=== PATIENT | female | born 1965 | race Caucasian/White ===

== ENCOUNTER 2021-08-09 17:10 | Emergency (ER) | payer MEDICARE, SELFPAY ==
[2021-08-09 17:22] VITALS: BP 112/80; PULSE 82; RESP 18; TEMP 36.7; O2SAT 98
--- NOTE | 2021-08-09 17:54 | ED.GENADULT ---
HPI - General Adult General Chief complaint: Upper Respiratory Infection Stated complaint: cough/sob/body aches Source: patient Mode of arrival: ambulatory Limitations: no limitations History of Present Illness HPI narrative: Patient is a 56-year-old female who presents to the [facility] via POV for evaluation of upper respiratory symptoms that have been present since this morning. Additionally, she reports dry cough, mid back pain, fatigue, occipital headache, and shortness of breath. She states her shortness of breath has improved since this morning. She admits to being a current tobacco smoker. Denies taking meds for symptoms. Sleep improves symptoms and being awake worsens symptoms. History of pneumonia. She states she is fully vaccinated against Covid. Denies influenza vaccine. Denies known exposure to sick contacts. Related Data Home Medications Medication Instructions Recorded Confirmed buspirone 10 mg PO DIRECTED 08/09/21 08/09/21 citalopram 20 mg PO DAILY 08/09/21 08/09/21 citalopram 40 mg PO DAILY 08/09/21 08/09/21 famotidine 40 mg PO DAILY 08/09/21 08/09/21 furosemide 40 mg PO DAILY 08/09/21 08/09/21 gabapentin 100 mg PO DIRECTED 08/09/21 08/09/21 trazodone 150 mg PO DAILY 08/09/21 08/09/21 zolpidem 12.5 mg PO DAILY 08/09/21 08/09/21 Allergies Allergy/AdvReac Type Severity Reaction Status Date / Time hepatitis B virus vaccine Allergy Mild Cramping Verified 08/09/21 17:50 of the Muscles clarithromycin Allergy Unknown Other Verified 08/09/21 17:50 sumatriptan Allergy Unknown Other Verified 08/09/21 17:50 acetaminophen AdvReac Mild N/V Verified 08/09/21 17:50 OXYCODONE HCL AdvReac Mild N/V Uncoded 08/09/21 17:50 Review of Systems Review of Systems: Denies history of COPD, bronchitis, asthma. Pertinent negatives: fever, sweats, chills, change in appetite, fatigue, skin color changes, severe persistent headache, nasal congestion/discharge, dizziness, lymphadenopathy, sinus problems, ear pain/drainage, chest pain, heart murmurs, heart palpitations, wheezing, cyanosis, hemoptysis, hoarseness, orthopnea, pleuritic pain, nausea, vomiting, diarrhea, and myalgias. [facility] Past Medical History Medical History (Updated 08/09/21 @ 18:16 by Jitendra Hills, MEDICAL STAFF CREDENTIALING COORDINATOR, ) Anxiety Depression GERD (gastroesophageal reflux disease) Hypertension Insomnia Comments I have reviewed and agree with the patient's past medical, surgical, social, and family hx as documented by the RN. There is no relevant family history pertinent to the presenting complaint. Exam Narrative: GENERAL: Well-appearing, well-nourished, and in no acute distress. HEAD: Normocephalic, atraumatic. No sinus tenderness or facial swelling appreciated. EYES: PERRLA and EOMI. No evidence of erythema, swelling, or drainage. ENT: Bilateral external ears and ear canals normal. Bilateral TMs are normal.No TM perforation. Nares clear, no rhinorrhea or epistaxis. Bilateral turbinates without erythema/ swelling. Mucous membranes moist and pink. Uvula is midline without erythema and swelling. No evidence of petechial rash, cobblestoning, lesions, ulcers, erythema, swelling, exudates, peritonsillar abscess, tenting, or drooling. Breath odor and voice normal. NECK: Supple. No Lymphadenopathy or nuchal rigidity appreciated. CHEST: Bilateral lung gagnon are clear to auscultation. No respiratory distress. No evidence of pleuritic cp upon examination. Moderate wet cough appreciated on examination. HEART: Regular rate and rhythm. No murmur, gallop, or rub heard. EXTREMITIES: Normal range of motion. No edema. SKIN: Warm, dry, no rash. NEURO: No focal deficits. Alert and oriented x3. Special observation: Strong smell of tobacco smoke upon entry into exam room Course Vital Signs Vital signs: Vital Signs Temperature 98.0 F 08/09/21 17: Pulse Rate 82 08/09/21 17:22 Respiratory Rate 18 08/09/21 17: Blood Pressure 112/80
== END 2021-08-09 18:41 | disposition home or self-care (01) ==
PROVIDERS: Emergency Provider Nurse Practitioner Family
DX: J06.9 Acute upper respiratory infection, unspecified (principal); Z20.822 Contact with and (suspected) exposure to COVID-19; K21.9 Gastro-esophageal reflux disease without esophagitis; I10 Essential (primary) hypertension; F41.9 Anxiety disorder, unspecified; F32.A Depression, unspecified; G47.00 Insomnia, unspecified
CPT/HCPCS: 87426; 87804; 99213; C9803; G0463

== ENCOUNTER 2021-09-15 15:05 | Emergency (ER) | payer MEDICARE, SELFPAY ==
--- NOTE | 2021-09-15 15:16 | ED.URI ---
HPI - URI/Sore Throat General Chief Complaint: Headache Stated Complaint: Headache Source: patient, family, RN notes reviewed and old records reviewed Mode of arrival: ambulatory Limitations: no limitations History of Present Illness HPI Narrative: 56-year-old presents to the [facility] with complaints of a headache for the last 4 days. Has tried her gabapentin she has prescribed. Has a history of migraines, states it feels very similar. Was able to drive her [address] home from work without issue. States she is late and sound sensitive. No neurologic deficits MD elicited complaint: other Related Data Home Medications Medication Instructions Recorded Confirmed buspirone 20 mg PO DIRECTED 08/09/21 09/15/21 citalopram 40 mg PO DAILY 08/09/21 09/15/21 furosemide 40 mg PO DAILY 08/09/21 09/15/21 gabapentin 100 mg PO DIRECTED 08/09/21 09/15/21 trazodone 300 mg PO DAILY 08/09/21 09/15/21 zolpidem 12.5 mg PO DAILY 08/09/21 09/15/21 Allergies Allergy/AdvReac Type Severity Reaction Status Date / Time hepatitis B virus vaccine Allergy Mild Cramping Verified 09/15/21 15:22 of the Muscles clarithromycin Allergy Unknown Other Verified 09/15/21 15:22 sumatriptan Allergy Unknown Other Verified 09/15/21 15:22 acetaminophen AdvReac Mild N/V Verified 09/15/21 15:22 OXYCODONE HCL AdvReac Mild N/V Uncoded 09/15/21 15:22 Review of Systems Review of Systems: All systems reviewed & are unremarkable except as noted in HPI and below Constitutional: Constitutional: Reports no additional constitutional complaints, Denies chills, Denies fever(s) and Denies headache(s) Eyes: Eyes: Reports as per HPI and Reports photophobia ENT: Reports system reviewed and no additional complaints, except as documented, Denies vertigo, Denies dizziness, Denies headache(s), Denies nasal congestion and Denies sore throat Cardiovascular: Cardiovascular: Reports no additional cardiovascular complaints, Denies chest pain, Denies syncope, Denies rapid heart rate and Denies dyspnea Respiratory: Respiratory: Reports no additional respiratory complaints, Denies cough, Denies dyspnea and Denies wheezing Gastrointestinal: Gastrointestinal: Reports no additional gastrointestinal complaints, Denies abdominal pain, Denies diarrhea, Denies nausea and Denies vomiting Musculoskeletal: Musculoskeletal: Reports no additional musculoskeletal complaints and Denies numbness Integumentary/Breasts: Skin/Breast: Reports system reviewed and no additional complaints, except as docu Neurologic: Reports as per HPI, Denies vertigo, Denies dizziness, Denies syncope, Reports headache(s), Denies focal weakness and Denies numbness Psychiatric: Psychiatric: Reports no additional psychiatric complaints Allergic/Immunologic: Allergic/Immunologic: Reports no additional allergic/immunologic complaints and Denies wheezing PMFSH Past Medical History Medical History (Updated 09/15/21 @ 16:14 by Sherice Mcdaniel) Anxiety Depression GERD (gastroesophageal reflux disease) Hypertension Insomnia Comments At the time of my signature, I reviewed and agree with the nursing past medical, surgical, social, and family history. There is no relevant family history pertinent to the patient complaint. Exam Const: General: cooperative, healthy appearing, no acute distress, well developed and alert Nutritional Appearance: well nourished Orientation/consciousness: patient oriented x3 Limitations: no limitations HENMT: Head: normal to inspection Ears: external ears normal, TM's normal bilaterally and EAC's normal Eyes: Alignment and Position: alignment normal Eyelids: eyelids normal Conjunctivae: conjunctivae normal Cornea: corneas normal Pupils: Equal, round and reactive pupils present EOM: EOMs intact bilaterally Direct Ophthalmoscopy: normal light reflex and photophobia Neck: Neck: normal visual inspection, no lymphadenopathy and no meningeal signs Chest: Chest palpation & i
[2021-09-15 15:29] VITALS: BP 145/66; PULSE 80; RESP 16; TEMP 36.7; O2SAT 97
[2021-09-15] MEDS: KETOROLAC (*BKC) 60 MG/2 ML VIAL IM (15:36)
[2021-09-15] MEDS: ONDANSETRON HCL ODT 4 MG TABLET SUBLINGUAL (15:36)
--- NOTE | 2021-09-15 16:10 | PC.NURSE ---
Re-evaluation: patient reports nausea has subsided, headache pain has improved to 3/10. 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
== END 2021-09-15 16:18 | disposition home or self-care (01) ==
PROVIDERS: Emergency Provider Nurse Practitioner; PCP Internal Medicine
DX: G43.909 Migraine, unspecified, not intractable, without status migrainosus (principal); K21.9 Gastro-esophageal reflux disease without esophagitis; I10 Essential (primary) hypertension; F41.9 Anxiety disorder, unspecified; F32.9 Major depressive disorder, single episode, unspecified
CPT/HCPCS: 96372; 99213; A9270; G0463; J1885

== ENCOUNTER 2023-01-18 19:08 | Emergency (ER) | payer MEDICARE, SELFPAY ==
--- NOTE | 2023-01-18 19:15 | ECG_ITS ---
Measurements Intervals [place] Rate: 68 P: 67 [place]: 158 QRS: 67 QRSD: 89 T: 55 QT: 339 QTc: 361 Interpretive Statements SINUS RHYTHM NONSPECIFIC T-WAVE ABNORMALITY NO PREVIOUS ECG AVAILABLE FOR COMPARISON Electronically Signed On 01-19-2023 13:36:29 CDT by Leah Jensen M.D.
[2023-01-18 19:17] VITALS: BP 130/80; PULSE 72; RESP 20; TEMP 35.8; O2SAT 98
[2023-01-18] MEDS: ASPIRIN 81 MG CHEWABLE TABLET 324 MG PO (19:21)
--- NOTE | 2023-01-18 19:30 | ED.GENADULT ---
HPI - General Adult General Chief complaint: Unspecified Stated complaint: Multiple Complaints Source: patient Mode of arrival: ambulatory Limitations: no limitations History of Present Illness HPI narrative: Patient is a 49-year-old female who presents with right-sided neck pain, right arm pain right back pain that started yesterday morning when she woke up. She states she could not turn her neck was shooting pain. Since then patient reports right side body numbness that started intermittently but is now constant. Reports frontal headache today but denies any vision changes or difficulty in speech. Denies any weakness in either extremity. Also having midsternal chest pressure 7/10. Patient was at chiropractor, but did not get adjusted due to symptoms and chiropractor told her to seek medical care. While at the chiropractor she started vomiting. Patient has taken ibuprofen today with no relief. Patient reports only history is psych related, no cardiac. Related Data Home Medications Medication Instructions Recorded Confirmed buspirone 10 mg tablet 20 mg PO DIRECTED 08/09/21 09/15/21 citalopram 40 mg tablet 40 mg PO DAILY 08/09/21 09/15/21 trazodone 150 mg tablet 300 mg PO DAILY 08/09/21 09/15/21 Allergies Allergy/AdvReac Type Severity Reaction Status Date / Time hepatitis B virus vaccine Allergy Mild Cramping Verified 01/18/23 19:51 of the Muscles clarithromycin Allergy Unknown Other Verified 01/18/23 19:51 sumatriptan Allergy Unknown Other Verified 01/18/23 19:51 acetaminophen AdvReac Mild N/V Verified 01/18/23 19:51 OXYCODONE HCL AdvReac Mild N/V Uncoded 01/18/23 19:51 Review of Systems Review of Systems: All systems reviewed & are unremarkable except as noted in HPI and below Constitutional: Constitutional: Denies body ache(s), Denies chills, Denies fatigue, Denies fever(s), Reports headache(s), Denies malaise and Denies weakness Eyes: Eyes: Denies blurry vision, Denies irritation and Denies loss of vision ENT: Denies otalgia, Denies headache(s), Denies nasal discharge, Denies sinus pain and Denies sore throat Cardiovascular: Cardiovascular: Reports chest pain, Denies irregular heart rhythm and Denies dyspnea Respiratory: Respiratory: Denies dyspnea Gastrointestinal: Gastrointestinal: Denies abdominal pain, Denies melena, Denies hematochezia, Denies diarrhea, Reports nausea and Reports vomiting Musculoskeletal: Musculoskeletal: Reports back pain, Denies myalgias, Denies arthralgias, Reports neck pain and Reports numbness Integumentary/Breasts: Skin/Breast: Denies pruritus and Denies rash Neurologic: Denies headache(s), Denies loss of vision and Denies weakness Psychiatric: Psychiatric: Reports no additional psychiatric complaints Endocrine: Endocrine: Denies fatigue PMFSH Past Medical History Medical History (Updated 01/18/23 @ 19:52 by Sabine Molina, VIRTUAL RECRUITER) Anxiety Depression GERD (gastroesophageal reflux disease) Hypertension Insomnia Comments At time of signature, agree with nursing past medical, surgical, social and family history. There is no relevant family history pertinent to the presenting complaint. Exam Const: General: cooperative, healthy appearing, uncomfortable and well nourished Nutritional Appearance: well nourished Orientation/consciousness: patient oriented x3 Limitations: no limitations HENMT: Head: normal to inspection, normocephalic and atraumatic Ears: hearing grossly normal bilaterally and external ears normal Face/Nose/Sinus: Normal external nose present, normal facial exam and face symmetric Face and sinus: normal facial exam and face symmetric Mouth: Yes lip normal Eyes: General: appearance normal, both eyes and all related structures Alignment and Position: alignment normal and position normal Periorbital: periorbital findings normal Eyelids: eyelids normal Pupils: Equal, round and reactive pupils present EOM: EOMs intact bilaterally Neck: Ne
== END 2023-01-18 19:40 | disposition short-term general hospital (02) ==
PROVIDERS: Emergency Provider Nurse Practitioner Family; PCP Internal Medicine
DX: R20.0 Anesthesia of skin (principal); R07.9 Chest pain, unspecified; M54.2 Cervicalgia; R51.9 Headache, unspecified; R11.10 Vomiting, unspecified; F32.A Depression, unspecified; F41.9 Anxiety disorder, unspecified; I10 Essential (primary) hypertension
CPT/HCPCS: 93005; 99215; A9270; G0463

== ENCOUNTER 2023-01-18 20:03 | Emergency (ER) | payer MEDICARE, SELFPAY ==
--- NOTE | ~2023-01-18 | CT_ITS ---
EXAMINATION: CTA chest abdomen pelvis DATE: 01/18/2023 22:51 INDICATION: Right-sided back, shoulder and arm pain. Headache. TECHNIQUE: Computed tomographic angiography (CTA) of the chest, abdomen, and pelvis was performed 100 mL Omnipaque-350 intravenous contrast. Volume-rendered 3D-reconstructions of the aorta and large art eries were constructed by the technologist on a separate workstation. Automated exposure control and iterative reconstruction technique were employed. The dose-length product was 1244.92 mGy-cm. COMPARISON: None FINDINGS: Chest: Mild dependent atelectasis in the bilateral lower lobes and mild discoid atelectasis at the lingula. No pneumonia, pulmonary edema, pleural effusion or pneumothorax. Heart size is normal. No pericardial effusion. Thoracic aorta is normal in caliber with no dissection. Mild thoracic dextrocurvature. Chr onic T12 compression fracture with 20% anterior vertebral body height loss. Abdomen and pelvis: Cholecystectomy clips at the gallbladder fossa. Liver, spleen, pancreas, bilateral adrenal glands and left kidney are normal. 6 mm cyst at the upper pole of the right kidney. There are some excreted con trast in the bladder and opacifying the majority the uterus likely related to the earlier contrast ut ilized for the CT of the carotid and cerebral arteries. The uterus is not identified and has likely b een surgically resected. Bowels including the appendix are normal. Small amount of atherosclerotic pl aque without hemodynamic significant stenosis along the normal caliber abdominal aorta and bilateral common iliac arteries. There are 2 right renal arteries supplying the upper and lower poles respectiv kd. No free intraperitoneal gas or fluid. No pathologically enlarged abdominal or pelvic lymphadenop athy. Mild lumbar spondylosis. IMPRESSION: 1. Normal caliber thoracic and abdominal aorta with no dissection. 2. No acute cardiopulmonary disease or acute intra-abdominal/pelvic process. Reviewed, dictated and finalized at location A.
--- NOTE | ~2023-01-18 | CT_ITS ---
EXAMINATION: CTA BRAIN/CAROTID DATE: 01/18/2023 22:46 INDICATION: Right-sided headache and neck pain TECHNIQUE: Computed tomographic angiography (CTA) of the head and neck was performed with 100 mL Omni paque-350 intravenous contrast. Multiplanar reconstructions and maximum intensity projection 3D-recon structions of the carotid arteries and of the intracranial arteries were created by the technologist on a separate workstation. Precontrast CT of the head was also obtained. Automated exposure control and iterative reconstruction technique were employed.The dose-length product was 1828.76 mGy-cm. COMPARISON: None. FINDINGS: Carotid arteries: There is minimal amount of plaque at the left and right carotid bulbs with 0% stenosis relative to no rmal distal artery lumen diameter (NASCET criteria). Right vertebral artery is dominant. Cervical spi ne and cervical soft tissues are unremarkable. Head: No acute intracranial hemorrhage, acute infarction or abnormal extra axial fluid collection. Ventricl es are normal and symmetric. No mass/mass effect. No abnormally enhancing brain lesions. Changes of r ight intraocular lens replacement. The orbits and paranasal sinuses are normal. Trace right mastoid e ffusion. Intracranial arteries: There is no hemodynamically significant stenosis in the vertebral, basilar and internal carotid arter ies. Vertebral artery is dominant. There are no aneurysms identified. Both A1 and P1 segments are pa tent. Cerebral arterial arborization appears symmetric. IMPRESSION: 1. No acute intracranial process or abnormally enhancing brain lesions. 2. 0% stenosis of the right and left carotid bulbs relative to normal distal artery lumen diameter (N ASCET criteria). 3. Normal cerebral angiogram with no hemodynamically significant stenosis, aneurysm or dissection. Reviewed, dictated and finalized at location A. IMPRESSION: 1. No acute intracranial process or abnormally enhancing brain lesions. 2. 0% stenosis of the right and left carotid bulbs relative to normal distal ar kailash lumen diameter (NASCET criteria). 3. Normal cerebral angiogram with no hemodynamically significant stenosis, aneu rysm or dissection.
[2023-01-18 20:01] VITALS: BP 120/70; PULSE 63; RESP 18; TEMP 36.4; O2SAT 94
[2023-01-18] MEDS: diphenhydrAMINE HCl INJ 50 MG/ML VIAL IV PUSH (22:16)
[2023-01-18] MEDS: SODIUM CHLORIDE 0.9% IV 1,000 ML 999 ML IV CONT (22:16)
[2023-01-18] MEDS: PROCHLORPERAZINE EDISYLATE 10 MG/2 ML VIAL IV PUSH (22:17)
[2023-01-18 22:19] LABS: Basophils Percent Auto 0.1 % (0.2-1.2); Hematocrit 37.2 % (37.0-47.0); Hemoglobin 12.3 g/dL (12.0-15.0); Immature Granulocyte Absolute 0.07 K/mm3 (0.00-0.031); Immature Granulocyte Percent A 0.6 % (0-0.5); Lymphocytes Absolute Auto 1.72 K/mm3 (0.9-3.2); Lymphocytes Percent Auto 14.6 % (18.3-44.2); Mean Corpuscular HGB Conc 33.1 g/dl (32-36); Mean Corpuscular Hemoglobin 30.8 pg (26-34); Mean Corpuscular Volume 93.2 fl (80-100); Mean Platelet Volume 9.2 fl (7.4-10.4); Monocytes Absolute Auto 0.3 K/mm3 (0.1-0.6); Monocytes Percent Auto 2.1 % (2.6-8.5); Neutrophils Absolute Auto 9.8 K/mm3 (1.3-6.7); Neutrophils Percent Auto 82.6 % (45.5-73.1); Platelet Count Result 246 k/mm3 (150-375); Red Blood Count 3.99 M/mm3 (4.2-5.4); Red Cell Distribution Width 15.7 % (11.5-14.5); White Blood Count 11.8 K/mm3 (4.5-10.0)
[2023-01-18 22:29] LABS: Alanine Aminotransferase 19 U/L (6-35); Alkaline Phosphatase 63 U/L (38-126); Anion Gap 4 mmol/L (8-16); Aspartate Amino Transferase 22 U/L (14-36); Bilirubin,Total 0.4 mg/dL (0.2-1.3); Blood Urea Nitrogen 8 mg/dL (7-17); Carbon Dioxide 30 mmol/L (22-30); Chloride 108 mmol/L (98-107); Estimated CRCL calculation 70 ml/min; Estimated Glomerular Filt Rate > 60; Glucose 112 mg/dL (65-110); Magnesium 2.2 mg/dL (1.6-2.3); Potassium 3.9 mmol/L (3.4-5.0); Sodium 142 mmol/L (137-145)
[2023-01-18 22:30] LABS: Lactic Acid Reflex 1.9 mmol/L (0.7-2.0)
[2023-01-18 22:30] LABS: Prothrombin Time 13.8 Seconds (11.1-14.7)
[2023-01-18 22:31] LABS: Partial Thromboplastin Time 31.9 SECONDS (22.3-36.8)
[2023-01-18 22:47] LABS: NT Pro B Type Natriuretic Pept 127 pg/mL (19.9-100); Troponin I < 0.012 ng/mL (0.000-0.034)
[2023-01-18 22:47] LABS: Appearance Urine Cloudy (Clear); Bacteria Urine Rare /hpf; Bilirubin Urine Negative (Negative); Blood Urine Negative (Negative); Color Urine Dark Yellow (Yellow); Glucose Urine UA Negative (Negative); Hyaline Casts Urine Present /lpf; Ketones Urine 1+ mg/dL (Negative); Leukocyte Esterase Ur Negative LEU/UL (Negative); Mucus Urine Present /lpf; Nitrate Urine Negative (Negative); Non Pathogenic Casts >20; Protein Urine 1+ mg/dL (Negative); Squamous Epithelial Cell Urine Many /hpf (Few); WBC Urine 21-50 /hpf; pH Urine 5.5 (5.0-9.0)
[2023-01-18 22:48] LABS: Specific Grav Ur 1.047 (1.001-1.035)
[2023-01-18 22:49] LABS: Add Urine Microscopic? YES
[2023-01-18 23:06] LABS: Procalcitonin < 0.0 ng/mL
--- NOTE | 2023-01-18 23:51 | ED.GENADULT ---
HPI - General Adult General Chief complaint: Headache Stated complaint: numbness Time Seen by Provider: 01/18/23 21:09 History of Present Illness HPI narrative: Patient is a 57-year-old female who presents emergency department with chief complaint of headache and pain between shoulder blades. The patient reports that she went to sleep on Sunday evening around midnight and woke up Sunday morning and noticed that she started having pain between her shoulder blades that radiated down her right arm patient states the pain then progressed to starting to develop a having a headache that started in her right frontal area the patient states that she had tried multiple different things to try to control her pain between her shoulder blades and ultimately the pain finally started to go away about the time that she went to go see a chiropractor who recommended that she go to the of the urgent care or the emergency department the patient then went to urgent care that ultimately said that they did not feel comfortable taking care of her at urgent care and sent her to the emergency department Related Data Home Medications Medication Instructions Recorded Confirmed buspirone 10 mg tablet 20 mg PO DIRECTED 08/09/21 01/18/23 citalopram 40 mg tablet 40 mg PO DAILY 08/09/21 01/18/23 trazodone 150 mg tablet 300 mg PO DAILY 08/09/21 01/18/23 Allergies Allergy/AdvReac Type Severity Reaction Status Date / Time hepatitis B virus vaccine Allergy Mild Cramping Verified 01/18/23 19:51 of the Muscles clarithromycin Allergy Unknown Other Verified 01/18/23 19:51 sumatriptan Allergy Unknown Other Verified 01/18/23 19:51 acetaminophen AdvReac Mild N/V Verified 01/18/23 19:51 OXYCODONE HCL AdvReac Mild N/V Uncoded 01/18/23 19:51 Review of Systems Review of Systems: A 10 system review of systems was completed on the patient and is negative except for what is stated in the HPI. Nursing and ancillary documentation was reviewed. PMFSH Past Medical History Medical History Anxiety Depression GERD (gastroesophageal reflux disease) Hypertension Insomnia Exam Narrative: GENERAL: Well-appearing, well-nourished, and in no acute distress. HEAD: Normocephalic, atraumatic. EYES: PERRLA and EOMI. ENT: Nares clear, no rhinorrhea or epistaxis. Mucous membranes moist. NECK: Supple. Back: There is tenderness to palpation of the paraspinous muscles in the thoracic spine area CHEST: Clear to auscultation. No respiratory distress. HEART: Regular rate and rhythm. No murmur heard. Normal peripheral pulses. ABDOMEN: Soft, nontender, nondistended, normal active bowel sounds. EXTREMITIES: Normal range of motion. No edema. SKIN: Warm, dry, no rash. NEURO: No focal deficits. Alert and oriented x3. PSYCH: Normal mood and affect. Course Vital Signs Vital signs: Vital Signs Temperature 36.4 C 01/18/23 20:01 Pulse Rate 63 01/18/23 20:01 Respiratory Rate 18 01/18/23 20:01 Blood Pressure 120/70 01/18/23 20:01 Pulse Oximetry 94 01/18/23 20:01 Oxygen Delivery Room Air 01/18/23 20:01 Temperature 36.4 C 01/18/23 20:01 Pulse Rate 59 L 01/19/23 00:00 Respiratory Rate 18 01/19/23 00:00 Blood Pressure 144/77 H 01/19/23 00:00 Pulse Oximetry 93 01/19/23 00:00 Oxygen Delivery Room Air 01/18/23 20:01 Medical Decision Making [facility] Narrative Medical decision making narrative: Differential diagnosis includes aortic dissection, carotid dissection, intracranial tumor, migraine, muscle spasm, ACS Laboratory studies were obtained on the patient which showed a white count of 11.8 hemoglobin was 12.3 electrolytes were within normal limits BNP was 127 initial troponin was less than 0.012 procalcitonin was less than 0.0 urinalysis did show evidence of UTI with 21-50 white blood cells in the urine CTA of the chest abdomen pelvis was obtained to evaluate
[2023-01-19] VITALS: BP 144/77; PULSE 59; RESP 18; O2SAT 93
[2023-01-19 02:07] LABS: Troponin I < 0.012 ng/mL (0.000-0.034)
--- NOTE | 2023-01-19 18:23 | ECG_ITS ---
Measurements Intervals [place] Rate: 57 P: 84 [place]: 180 QRS: -57 QRSD: 110 T: 78 QT: 439 QTc: 428 Interpretive Statements SINUS BRADYCARDIA LEFT ANTERIOR FASCICULAR BLOCK [QRS AXIS <= -45, QR IN I, RS IN II] COMPARED TO ECG 01/18/2023 19:20:57 SINUS BRADYCARDIA NOW PRESENT Electronically Signed On 01-23-2023 13:59:40 CDT by Leah Jensen M.D.
== END 2023-01-19 02:23 | disposition home or self-care (01) ==
PROVIDERS: Emergency Provider Emergency Medicine; PCP Internal Medicine
DX: N30.00 Acute cystitis without hematuria (principal); R51.9 Headache, unspecified; M54.2 Cervicalgia; M25.511 Pain in right shoulder; I10 Essential (primary) hypertension; K21.9 Gastro-esophageal reflux disease without esophagitis; F32.A Depression, unspecified; F41.9 Anxiety disorder, unspecified; M79.601 Pain in right arm
CPT/HCPCS: 36415; 70496; 70498; 71275; 74174; 80053; 81001; 81025; 83605; 83735; 83880; 84145; 84484; 85025; 85610; 85730; 87086; 87088; 93005; 96361; 96374; 96375; 99284; A9270; J0780; J1200; J7030; Q9967